=== PATIENT | female | born 2005 | race Caucasian/White ===

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

== ENCOUNTER 2024-06-21 18:12 | Emergency (ER) | payer MEDICAID ==
[2024-06-21 21:18] LABS: BASOPHILS ABSOLUTE AUTO 0.03 K/uL (0.00-0.10); BASOPHILS PERCENT AUTO 0.2 % (0.1-1.3); EOSINOPHILS PERCENT AUTO 0.2 % (0.0-5.4); HEMATOCRIT 38.9 % (34.3-46.0); HEMOGLOBIN 12.6 g/dL (11.2-15.5); IMMATURE GRAN ABSOLUTE AUTO 0.06 K/uL (0.00-0.23); IMMATURE GRAN PERCENT AUTO 0.5 % (0.0-0.7); LYMPHOCYTES ABSOLUTE AUTO 1.08 K/uL (0.8-3.3); LYMPHOCYTES PERCENT AUTO 8.3 % (11.4-47.7); MEAN CORPUSCULAR HEMOGLOBIN 27.5 pg (31.6-35.5); MEAN CORPUSCULAR HGB CONC 32.4 g/dL (31.6-35.5); MEAN CORPUSCULAR VOLUME 84.7 fL (81.4-99.0); MONOCYTES ABSOLUTE AUTO 0.43 K/uL (0.20-0.90); MONOCYTES PERCENT AUTO 3.3 % (3.3-12.6); NEUTROPHILS ABSOLUTE AUTO 11.32 K/uL (1.0-7.6); NEUTROPHILS PERCENT AUTO 87.5 % (40.0-78.1); PLATELET COUNT,PLT 217 K/uL (130-375); RED BLOOD CELL COUNT 4.59 M/uL (3.77-5.24); WHITE BLOOD CELL COUNT,WBC 12.9 K/uL (3.2-11.0)
[2024-06-21] MEDS: Sodium Chloride 0.9% 1,000 ML IV SCH (21:20)
[2024-06-21] MEDS: diphenhydrAMINE 50 MG/ML SDV IVPUSH ONE (21:21)
[2024-06-21 21:23] LABS: EOSINOPHILS ABSOLUTE AUTO 0.02 K/uL (0.00-0.40)
[2024-06-21] MEDS: Prochlorperazine 10 MG/2 ML SDV IVPUSH ONE (21:24)
[2024-06-21 21:33] LABS: ANION GAP 13.2 mmol/L (5.0-14.0); CALCIUM 8.8 mg/dL (8.5-10.1); CREATININE 0.8 mg/dL (0.6-1.0); EST CRCL DRUG DOSING (CG) 96.86 mL/min; POTASSIUM,K 3.6 mmol/L (3.6-5.2)
[2024-06-21 22:01] VITALS: BP 106/60; PULSE 114
== END 2024-06-21 22:40 | disposition home or self-care (01) ==
LOC: JP.ED 18:12
DX: J06.9 Acute upper respiratory infection, unspecified (principal); B97.89 Other viral agents as the cause of diseases classified elsewhere; G43.909 Migraine, unspecified, not intractable, without status migrainosus; Z79.899 Other long term (current) drug therapy
CPT/HCPCS: 36415; 71045; 80048; 85025; 87428; 96361; 96374; 96375; 99283; 99285; J0780; J1200; J7030

== ENCOUNTER 2024-07-22 06:28 | Day surgery (SDC) | payer MEDICAID ==
[2024-07-22] MEDS ORDERED: Propofol 200 MG/20 ML SDV ONE ×2 (07:16→08:24)
[2024-07-22] MEDS ORDERED: Midazolam 1 MG/ML 2 ML SDV ONE (07:16)
[2024-07-22] MEDS ORDERED: fentaNYL 50 MCG/ML SDV ONE (07:16)
[2024-07-22] MEDS: Lactated Ringers 1,000 ML IV SCH (07:32)
[2024-07-22] MEDS: Lidocaine 1% with EPINEPHrine 1:100,000 50 ML MDV ONE (08:30)
[2024-07-22 09:48] VITALS: BP 124/66; PULSE 83
== END 2024-07-22 10:15 | disposition home or self-care (01) ==
LOC: JP.SDS 06:28
PROVIDERS: ATTEND Surgery
DX: K64.4 Residual hemorrhoidal skin tags (principal); K52.9 Noninfective gastroenteritis and colitis, unspecified; E66.9 Obesity, unspecified; J45.909 Unspecified asthma, uncomplicated
CPT/HCPCS: 00811; 45385; 45398; 81025; J2250; J2704; J3010; J7120; 88305; 88341; 88342